=== PATIENT | female | born 1970 | race Caucasian/White ===

== ENCOUNTER 2024-11-26 14:08 | Emergency (ER) | payer MEDICARE ==
[~2024-11-26] VITALS: Ht 157.4 cm; Wt 81.6 kg
[~2024-11-26 14:08] MED LIST: ABILIFY30 MG PO; AMBIEN10 M1 PO; ANXIETY MED; CELEXA40 MG PO; CLARITIN10 MG PO; CLINDAMYCIN HC300 MG PO; EES400 MG PO; HYDROCODONE BIT1 T11 PO; MOTRIN600 MG PO; MOTRIN800 MG PO; NAPROSYN500 MG PO; ORTHO TRI-CYCLE1 TA1 PO; PARAFON FORTE500 MG PO; PREDNISONE20 M1 PO; SOMA250 MG PO; SYNTHROID RP0.1 MG PO; TRAMADOL HCL50 MG PO; TRIMOX500 MG PO; ULTRAM50 MG PO; VENLAFAXINE H37.5 M5 PO; VICODIN 5/500 505 MG PO; XANAX0.5 MG PO; ZITHROMAX Z PA250 MG PO; ZOLOFT20 MG/ML PO; ZOLOFT25 MG PO
[2024-11-26 14:16] VITALS: BP 156/70
[2024-11-26] MEDS ORDERED: KENALOG 0.1%80 GM T (16:56)
[2024-11-26] MEDS ORDERED: PREDNISONE20 M1 PO (16:56)
[2024-11-26] MEDS ORDERED: methylPREDNISolone sod succ 125 MG VIAL IM ONE (17:00)
[2024-11-26] MEDS ORDERED: Acetaminophen/Hydrocodone 5 MG/325 MG TABLET PO ONE (17:00)
[2024-11-26] MEDS ORDERED: Acetaminophen/Hydrocodone 5 MG/325 MG TABLET PO SCH (17:15)
== END 2024-11-26 17:35 | disposition home or self-care (01) ==
LOC: ED 14:08
DX: M54.12 Radiculopathy, cervical region (principal); L25.9 Unspecified contact dermatitis, unspecified cause; M79.602 Pain in left arm; F32.A Depression, unspecified; F41.9 Anxiety disorder, unspecified; F17.200 Nicotine dependence, unspecified, uncomplicated; Z91.040 Latex allergy status; Z88.0 Allergy status to penicillin; Z98.890 Other specified postprocedural states